=== PATIENT | female | born 1985 | race Caucasian/White ===

== ENCOUNTER → 2018-05-13 08:25 | Outpatient (CLI) | payer MEDICAID | END | disposition home or self-care (01) | LOC: D.RAD 08:00 | DX: R13.10 Dysphagia, unspecified (principal) ==

== ENCOUNTER → 2018-12-12 10:18 | Outpatient (CLI) | payer MEDICAID | END | disposition home or self-care (01) | LOC: D.HCCARDIO 10:18 | DX: R00.0 Tachycardia, unspecified (principal) ==

== ENCOUNTER 2019-07-20 18:43 | Emergency (ER) | payer MEDICAID ==
[~2019-07-20] VITALS: Ht 165.1 cm; Wt 85.5 kg
[2019-07-20 18:50] VITALS: Ht 165.1 cm; Wt 85.5 kg
[2019-07-20] MEDS ORDERED: PROPAFENONE HC150 MG PO (18:52)
[2019-07-20] MEDS ORDERED: B12 SHOT (18:52)
[2019-07-20] MEDS ORDERED: HYDROCODON-ACE1 EA10 PO (18:52)
[2019-07-20] MEDS ORDERED: ATIVAN2 MG PO (18:52)
[2019-07-20 19:26] LABS: BASOPHILS 0.3 % (0-2); EOSINOPHILS 0.8 % (0-7); HEMATOCRIT 38.5 % (36.0-48.0); HEMOGLOBIN 13.2 g/dL (12-16); IMMATURE GRANULOCYTES 0.2 % (0-5); LYMPHOCYTES 25.9 % (15-50); MCH 30.6 pg (26.0-34.0); MCHC 34.3 g/dL (31.0-37.0); MCV 89.3 fL (80.0-100.0); MEAN PLATELET VOLUME 9.6 fL (7.4-10.4); MONOCYTES 4.2 % (2-11); NEUTROPHILS 68.6 % (40-80); PLATELET COUNT 380 10x3/uL (130-400); RBC 4.31 10x6/uL (4.00-5.40); RDW 12.5 % (11.5-14.5)
[2019-07-20 19:33] LABS: APTT 30.6 SECONDS (22.8-39.4); INR 0.97 (0.85-1.17); PROTIME 12.4 SECONDS (11.6-15.0)
[2019-07-20 19:35] LABS: CALC OSMOLALITY 283 mosm/kg (275-300); CALCIUM 8.5 mg/dL (8.5-10.1); CARBON DIOXIDE 27.6 mmol/L (21.0-32.0); CHLORIDE - SERUM 107 mmol/L (98-107); CREATININE - SERUM 0.8 mg/dL (0.6-1.3); GLUCOSE 110 mg/dL (74-106); POTASSIUM - SERUM 3.7 mmol/L (3.5-5.1); SODIUM 143 mmol/L (136-145); UREA NITROGEN 7 mg/dL (7-18); eGFR NON AFRICAN AMERICAN 86 mL/min (90-120)
[2019-07-20 19:51] LABS: ALBUMIN 3.5 g/dL (3.4-5.0); ALKALINE PHOSPHATASE 141 U/L (46-116); ALT (SGPT) 64 U/L (10-68); BILIRUBIN - TOTAL 0.23 mg/dL (0.2-1.3); CKMB 0.4 U/L (0.0-3.6); CREATINE KINASE 55 UL (21-215); PROTEIN - SERUM 7.4 g/dL (6.4-8.2)
[2019-07-20 20:00] LABS: TROPONIN-I < 0.017 ng/mL (0.000-0.060)
[2019-07-20 21:40] VITALS: BP 122/73
== END 2019-07-20 21:41 | disposition home or self-care (01) ==
LOC: D.ER 18:43
PROVIDERS: Family Medicine
DX: R00.2 Palpitations (principal); I47.1 Supraventricular tachycardia; M79.7 Fibromyalgia

== ENCOUNTER → 2019-08-05 11:33 | Outpatient (CLI) | payer MEDICAID ==
[2019-07-20 18:50] VITALS: BMI 31.3
--- NOTE | ~2019-08-05 | ST ---
PATIENT:WILLIAN DAVIDSON MEDICAL RECORD: [id number] SEX: F LOCATION:[facility] ORDER #: ADMISSION DATE: 08/05/19 AGE OF PATIENT: 34 REFERRING PHYSICIAN: INTERPRETING PHYSICIAN: KENDRA MATHEWS MD DATE OF SERVICE: 08/05/2019 PROCEDURE: Nuclear stress test. INDICATION: Angina, abnormal ECG. She was exercised on standard Lexiscan protocol with 32 mCi of sestamibi injected at peak stress, 11 mCi used previously for rest images. FINDINGS: Gated SPECT reveals preserved ejection fraction at 59% with good wall motion and thickening and brightening throughout all segments. SPECT imaging Cardiolite was used as myocardial fusion agent. There is homogeneous uptake throughout all segments at rest and stress with no evidence of inducible ischemia or previous infarction. OVERALL IMPRESSION: 1. This is a normal nuclear stress test with no evidence of inducible ischemia or previous infarction. 2. Gated SPECT reveals a preserved ejection fraction at 59%. In this patient with ongoing symptomatology, the current scan does not suggest the presence of hemodynamically significant coronary artery disease. Evaluate noncardiac etiology of chest pain. TRANSINT:[id number] Voice Confirmation ID: [id number] DOCUMENT ID: [id number] KENDRA MATHEWS MD CC: JAE ASTUDILLO [id number] DICTATION DATE: 08/05/19 1642 MINE DEVELOPMENT ENGINEER: 08/06/19 0715 [facility] CLI 08/05/19 [id number] [place] [address]
[~2019-08-05 11:33] MED LIST: ATIVAN2 MG PO; B12 SHOT; HYDROCODON-ACE1 EA10 PO; PROPAFENONE HC150 MG PO
== END | disposition home or self-care (01) ==
LOC: D.HCCARDIO 11:33
PROVIDERS: ATTEND Internal Medicine Interventional Cardiology
DX: I20.9 Angina pectoris, unspecified (principal)

== ENCOUNTER 2019-08-10 19:28 | Emergency (ER) | payer MEDICAID ==
[~2019-08-10] VITALS: Ht 165.1 cm; Wt 93.6 kg
[2019-08-10 20:11] VITALS: Ht 165.1 cm; Wt 93.6 kg
[2019-08-10] MEDS ORDERED: CYMBALTA60 MG PO (20:13)
[2019-08-10 20:58] LABS: BASOPHILS 0.4 % (0-2); EOSINOPHILS 1.5 % (0-7); HEMATOCRIT 36.6 % (36.0-48.0); HEMOGLOBIN 12.3 g/dL (12-16); IMMATURE GRANULOCYTES 0.2 % (0-5); LYMPHOCYTES 34.4 % (15-50); MCH 30.1 pg (26.0-34.0); MCHC 33.6 g/dL (31.0-37.0); MCV 89.7 fL (80.0-100.0); MEAN PLATELET VOLUME 9.2 fL (7.4-10.4); MONOCYTES 5.1 % (2-11); NEUTROPHILS 58.4 % (40-80); PLATELET COUNT 350 10x3/uL (130-400); RBC 4.08 10x6/uL (4.00-5.40); RDW 12.4 % (11.5-14.5); WBC 12.4 10x3/uL (4.8-10.8)
[2019-08-10 21:11] LABS: CALC OSMOLALITY 276 mosm/kg (275-300); CALCIUM 8.2 mg/dL (8.5-10.1); CARBON DIOXIDE 28.7 mmol/L (21.0-32.0); CHLORIDE - SERUM 104 mmol/L (98-107); CREATININE - SERUM 0.8 mg/dL (0.6-1.3); GLUCOSE 90 mg/dL (74-106); INR 0.93 (0.85-1.17); POTASSIUM - SERUM 3.8 mmol/L (3.5-5.1); PROTIME 12.5 SECONDS (11.6-15.0); SODIUM 138 mmol/L (136-145); UREA NITROGEN 15 mg/dL (7-18); eGFR NON AFRICAN AMERICAN 86 mL/min (90-120)
[2019-08-10 21:12] LABS: APTT 29.7 SECONDS (22.8-39.4)
[2019-08-10 21:39] LABS: ALBUMIN 3.5 g/dL (3.4-5.0); ALKALINE PHOSPHATASE 116 U/L (30-120); ALT (SGPT) 17 U/L (10-68); BILIRUBIN - TOTAL 0.17 mg/dL (0.2-1.3); CKMB 0.3 U/L (0.0-3.6); CREATINE KINASE 77 UL (21-215); MAGNESIUM - SERUM 1.9 mg/dL (1.8-2.4); PROTEIN - SERUM 7.3 g/dL (6.4-8.2)
[2019-08-10 21:40] LABS: TROPONIN-I < 0.017 ng/mL (0.000-0.060)
[2019-08-10 23:00] VITALS: BP 130/83
== END 2019-08-10 23:00 | disposition home or self-care (01) ==
LOC: D.ER 19:28
PROVIDERS: Emergency Medicine
DX: R07.89 Other chest pain (principal); I47.1 Supraventricular tachycardia; M79.7 Fibromyalgia